=== PATIENT | female | born 1995 ===

== ENCOUNTER 2025-03-05 11:43 | Emergency (ER) | payer OTHER, BC, SELFPAY ==
[2025-03-05] VITALS (26 sets, daily range): BP systolic 113–131; BP diastolic 54–86; PULSE 55–91; RESP 10–21; TEMP 36.6; O2SAT 98–100
--- NOTE | 2025-03-05 11:45 | RT.EKG_ITS ---
APPROVED REPORT Exam: Resting ECG Reason for Exam: dizziness Patient Location: E HR:62 bpm ECG Measurements Heart Rate 62 AXIS IA 141 P 36 QRSd 77 QRS 67 QT 391 T 64 QTc 397 Conclusion Sinus rhythm...normal P axis, V-rate 60- 99 I have reviewed and interpreted ECG and agree with software generated interpretation.
--- NOTE | 2025-03-05 12:15 | DI.CT_ITS ---
Exam(s) CT BRAIN NECK CTA EXAM: CT BRAIN NECK CTA CLINICAL HISTORY: syncope vs thunderclap PETER. TECHNIQUE: Imaging Protocol: Axial CT angiography was performed with multi- slice acquisition and multi-planar and MIP reconstructions. CONTRAST MATERIAL: Intravenous: Omnipaque 350 Contrast volume:70 ml COMPARISON: No exams were available for comparison FINDINGS: CT Head W/O and W contrast: Noncontrast exam is limited by motion. Ventricles and Extra axial spaces: Normal in size and morphology for the patient's age. Hemorrhage: None limited evaluation due to motion. Hemorrhage not excluded. Cerebral parenchyma: No evidence of acute infarct or mass. Midline shift: None. Brainstem/Cerebellum: No acute findings.. Calvarium: Normal. Visualized Paranasal sinuses/Mastoids: Clear. Soft Tissues: Unremarkable. Enhancement: Normal. Venous sinuses are patent. CTA Brain W: Internal Carotid Arteries: Right: No aneurysm, occlusion or significant stenosis. Left: No aneurysm, occlusion or significant stenosis. Middle Cerebral Arteries: Right: No aneurysm, occlusion or significant stenosis. Left: No aneurysm, occlusion or significant stenosis. Anterior Cerebral Arteries: Right: No aneurysm, occlusion or significant stenosis. Left: No aneurysm, occlusion or significant stenosis. Posterior cerebral Arteries: Right: No aneurysm, occlusion or significant stenosis. Left: No aneurysm, occlusion or significant stenosis. Vertebral Arteries: Right: No aneurysm, occlusion or significant stenosis. Left: No aneurysm, occlusion or significant stenosis. Basilar Artery: No aneurysm, occlusion or significant stenosis. CTA Neck W: Common Carotid: Right: No dissection, occlusion or significant stenosis. Left: No dissection, occlusion or significant stenosis. External Carotid: Right: No dissection, occlusion or significant stenosis. Left: No dissection, occlusion or significant stenosis. Internal Carotid: Right: No dissection, occlusion or significant stenosis. Left: No dissection, occlusion or significant stenosis. Vertebral Artery: Right: No dissection, occlusion or significant stenosis. Left: No dissection, occlusion or significant stenosis. Lung Apices: No acute findings. Bones: No acute abnormality. Soft Tissues: Normal. IMPRESSION: 1. CTA brain: Normal CTA examination of the [place]. 2. Head CT: Precontrast exam is limited due to motion. No acute abnormality is visible. 3. CTA neck: No evidence of occlusion, significant stenosis or dissection. RADIATION DOSE DELIVERED: 2,173.66mGy.cm Total DLP DATA REPOSITORY: All CT scans at this facility are submitted to the National Radiology Data Registry (NRDR) Dose Index Registry (DIR) with the [employer] (A[employer]). RADIATION OPTIMIZATION: All CT scans at this facility use at least one of these dose optimization techniques: automated exposure control; mA and/or kV adjustment per patient size (includes targeted exams where dose is matched to clinical indication); or iterative reconstruction.
[2025-03-05 12:40] LABS: Lactate 1.1 mmol/L (<or=2.0)
[2025-03-05 12:41] LABS: Abs Immature Grans 0.03 10^3/uL (0.0-0.06); Absolute Basophil Count 0.04 10^3/uL (0.0-0.2); Absolute Eosinophil Count 0.06 10^3/uL (0.0-0.7); Absolute Lymphocyte Count 1.96 10^3/uL (1.2-3.4); Absolute Monocyte Count 0.44 10^3/uL (0.1-0.8); Absolute Neutrophil Count 3.84 10^3/uL (1.2-6.7); Basophils % 0.6 %; Eosinophils % 0.9 %; HCT 43.8 % (36.0-46.0); Immature Grans % 0.5 %; Lymphocytes % 30.8 %; MCH 31.6 pg (27.0-33.0); MCHC 34.2 % (32.0-36.0); MCV 92 fL (80-95); MPV 9.2 fL (8.0-11.0); Monocytes % 6.9 %; Neutrophils % 60.3 %; Platelet Count 246 10^3/uL (130-400); RBC 4.74 10^6/uL (3.93-5.22); RDW 11.4 % (11.7-14.6); RDW-SD 38.8 fL; WBC 6.37 10^3/uL (4.4-10.8)
[2025-03-05] MEDS: Normal Saline - Diluent 50 ML VIAL IJ (12:55)
--- NOTE | 2025-03-05 12:55 | ED.GENADUL_ITS ---
Discharge Plan Disposition Patient Disposition: Home Condition: Stable Discharge Details Clinical Impression: Vasovagal near syncope Primary Care Provider: Unknown,Unknown ED Provider: Chilo Jackson Home Meds and New Rx's Prescriptions: No Action No Known Home Meds Discharge Instructions Instructions: Vasovagal Response Additional Instructions: You were seen in the emergency department for your confusion, headache and dizziness while at the [facility], the CT of your head shows no bleeding, no tumor, no other abnormalities, your laboratory workup is negative, there is no evidence of any strain on your heart, you likely had some malnutrition and dehydration from not eating and then performing physical assessments today. If this episode does recur I think he should be reevaluated at the emergency department, please return for any chest pain, palpitations, near fainting or dizziness or any alteration from baseline. Discharge Data Discharge Date/Time-TO BE ENTERED AT DEPARTURE: 03/05/25 15:11 HPI General Date/Time Provider Initiated Documentation: 03/05/25 12:08 . HPI Narrative: 29 year-old female presents to ED today by EMS with a chief complaint of dizziness, confusion, headache, near syncope while doing physical assessment day at [facility] [employer] with onset about 40 mins prior to presentation. Quality described as just felt weak and dizzy- altered mentation, no radiation to visual changes, unilateral weakness, complete numbness, chest pain, shortness of breath, vomiting. Severity is described as severe. Palliating factors include tried having gatorade and food with only very slight improvement. Provoking factors include nothing specific. Patient not anticoagulated. Related Data Home Medications ?Medication ?Instructions ?Recorded ?Confirmed Unknown [No Known Home Meds] 03/05/25 0 03/05/25 Allergies Allergy/AdvReac Type Severity Reaction Status Date / Time No Known Allergies Allergy Unverified 03/05/25 13:14 General Stated Complaint: Dizzy/Sync HAMLET: 3 Review of Systems All systems reviewed & are unremarkable except as noted in HPI and below Exam Narrative Exam Narrative: GENERAL APPEARANCE: Well-nourished, non-toxic, awake and alert, atraumatic, no acute distress. SKIN: Warm, pale, dry, intact, without rashes/lesions/ulcerations. HEAD: Normocephalic, atraumatic, normal hair distribution for gender/age. EYES: Normal conjunctiva, no exudates on lids/lashes. ENT: Nares patent, no circumoral cyanosis, no facial swelling NECK: Supple, trachea midline, painless cervical ROM. LUNGS/CHEST: Lungs CTA bilaterally- no rhonchi/rales/wheezes diffusely, non- labored respirations, normal A/P diameter, symmetrical expansion, no chest wall deformity HEART (CV/PV): Regular rate and rhythm without murmur, no peripheral edema, no JVD. ABDOMEN: Soft, non-distended, no guarding. MSK: Normal ROM, no swelling/deformity to bilateral UEs or LEs, moving all extremities without weakness, no cyanosis, spine midline without tenderness, normal curvature. NEURO: Mental Status AAOx4 - alert to person, place, time, events No facial droop, no forehead involvement, no dysmetria with FNF, heel-hartman Motor: No focal weakness - strength 5/5 in bilateral UEs and LEs, proximal and distal, symmetric. Sensory: sensation intact to light touch globally. Gait normal: patient ambulated without ataxia in ED room. PSYCH: euthymic, cooperative, pleasant, appropriate speech Course Vital Signs Vital signs: Vital Signs Temperature 36.6 C 03/05/25 11:50 Pulse 68 03/05/25 11:50 Respiratory Rate 16 03/05/25 11:50 Blood Pressure 131/86 03/05/25 11:50 Pulse Oximetry 98 03/05/25 11:50 Temperature 36.6 C 03/05/25 11:50 Pulse 68 03/05/25 11:50 Respiratory Rate 16 03/05/25 11:50 Blood Pressure 131/86 03/05/25 11:50 Pulse Oximetry 98 03/05/25 11:50 Pain Level 0 03/05/25 11:50 Lab/Test Results Lab/Test Results: Laboratory Tests Range/Units 03/05/25 12:30 WBC (4.4-10.8) 10^3/uL 6.37 RBC (3.93-5.22) 10^6/uL 4.74 Hgb (11.2-15.7) g/dL 15.0 Hct (36.0-46.0) % 43.8 MCV (80-95) fL 92 MCH (27.0-33.0) pg 31.6 MCHC (32.0-36.0) % 34.2 RDW (11.7-14.6) % 11.4 L Plt Count (130-400) 10^3/uL 246 MPV (8.0-11.0) fL 9.2 Immature Gran % % 0.5 Neutrophils % % 60.3 Lymphocytes % % 30.8 Monocytes % % 6.9 Eosinophils % % 0.9 Basophils % % 0.6 Nucleated RBC % (0.0-0.3) % 0.0 Absolute Neutrophils (1.2-6.7) 10^3/uL 3.84 Absolute Lymphocytes (1.2-3.4) 10^3/uL 1.96 Absolute Monocytes (0.1-0.8) 10^3/uL 0.44 Absolute Eosinophils (0.0-0.7) 10^3/uL 0.06 Absolute Basophils (0.0-0.2) 10^3/uL 0.04 VBG Lactate (<or=2.0) mmol/L 1.1 TSH Cancelled Medical Decision Making This dictation utilizes [id number] dictation software and may contain unedited grammatical errors. 29 year-old female presents to ED today by EMS with a chief complaint of dizzine ss, confusion, headache, near syncope while doing physical assessment day at [employer] [employer] with onset about 40 mins prior to presentation. Quality described as just felt weak and dizzy- altered mentation, no radiation to visual changes, unilateral weakness, complete numbness, chest pain, shortness of breath, vomiting. Severity is described as severe. Palliating factors include tried having gatorade and food with only very slight improvement. Provoking factors include nothing specific. Patient did not eat a lot of food this morning. Patients' medical history: negative, otherwise healthy, no episodes like this in the past. Family and social history: Healthy and active, no substance use. Pertinent exam findings / vital signs include alert and oriented but slow to respond, able to follow commands, no weakness to any extremity, benign cardiopulmonary exam, EOMs intact, no cerebellar signs with [id number] or heel hartman. Differential / pathologies of concern include syncope, SAH, vasovagal syncope, dehydration/malnutrition, focal seizure, less likely CVA/TIA. Diagnostic studies of: -CBC, CMP, lactate, magnesium, serial troponins, BNP, TSH, lipase, POC Upreg, UD S, UA, CTA brain and neck, EKG. - CBC shows no anemia, no leukocytosis - Lactate negative - CMP without acute abnormality - Serial troponins negative - BNP negative - Lipase within normal limits - TSH within normal limits - POC urine negative, UA shows no signs of infection or other abnormality - UDS negative - CT of the brain and neck shows no acute abnormality - EKG shows no signs of ischemia, normal intervals, normal axis, no T wave abnormalities Interventions of: -1L IVF NS, 1g PO tylenol, 15mg IVP ketorolac, some improvement in headache. ED Course/Assessment/Plan: 29-year-old female was undergoing physical assessment training at [facility] [employer] [facility], did not eat breakfast or hydrate herself well this morning and had a possible near syncopal event, they states she did not fully lose consciousness but was complaining of confusion and headache with sudden onset, CTA of the brain and neck ruled out any intracranial pathology she was given headache medications with some improvement. She was initially sluggish to respond but did identify she was at [facility], she had no focal weakness on neurologic exam and her laboratory workup was benign, she was provided IV fluids, counseled her on strict return criteria for any further episodes of sudden onset dizziness and headache and recommend she follow-up with her primary care provider. Findings not consistent with arrhythmia, heart block, intracranial hemorrhage, stroke, subarachnoid hemorrhage, ACS, substance use. Disposition of Vasovagal Response. Patient verbalized understanding of the plan and return to ED criteria and engaged in shared decision making. Medical Records Medical records reviewed: Yes I reviewed the patient's medical records. Imaging Data Radiologic Study: Attestation: I personally reviewed and interpreted this imaging study as follows: Imaging: CT Scan Radiologist's impression: EXAM: CT BRAIN NECK CTA CLINICAL HISTORY: syncope vs thunderclap PETER. TECHNIQUE: Imaging Protocol: Axial CT angiography was performed with multi- slice acquisition and multi-planar and MIP reconstructions. CONTRAST MATERIAL: Intravenous: Omnipaque 350 Contrast volume:70 ml COMPARISON: No exams were available for comparison FINDINGS: CT Head W/O and W contrast: Noncontrast exam is limited by motion. Ventricles and Extra axial spaces: Normal in size and morphology for the patient's age. Hemorrhage: None limited evaluation due to motion. Hemorrhage not excluded. Cerebral parenchyma: No evidence of acute infarct or mass. Midline shift: None. Brainstem/Cerebellum: No acute findings.. Calvarium: Normal. Visualized Paranasal sinuses/Mastoids: Clear. Soft Tissues: Unremarkable. Enhancement: Normal. Venous sinuses are patent. CTA Brain W: Internal Carotid Arteries: Right: No aneurysm, occlusion or significant stenosis. Left: No aneurysm, occlusion or significant stenosis. Middle Cerebral Arteries: Right: No aneurysm, occlusion or significant stenosis. Left: No aneurysm, occlusion or significant stenosis. Anterior Cerebral Arteries: Right: No aneurysm, occlusion or significant stenosis. Left: No aneurysm, occlusion or significant stenosis. Posterior cerebral Arteries: Right: No aneurysm, occlusion or significant stenosis. Left: No aneurysm, occlusion or significant stenosis. Vertebral Arteries: Right: No aneurysm, occlusion or significant stenosis. Left: No aneurysm, occlusion or significant stenosis. Basilar Artery: No aneurysm, occlusion or significant stenosis. CTA Neck W: Common Carotid: Right: No dissection, occlusion or significant stenosis. Left: No dissection, occlusion or significant stenosis. External Carotid: Right: No dissection, occlusion or significant stenosis. Left: No dissection, occlusion or significant stenosis. Internal Carotid: Right: No dissection, occlusion or significant stenosis. Left: No dissection, occlusion or significant stenosis. Vertebral Artery: Right: No dissection, occlusion or significant stenosis. Left: No dissection, occlusion or significant stenosis. Lung Apices: No acute findings. Bones: No acute abnormality. Soft Tissues: Normal. IMPRESSION: 1. CTA brain: Normal CTA examination of the [place]. 2. Head CT: Precontrast exam is limited due to motion. No acute abnormality is visible. 3. CTA neck: No evidence of occlusion, significant stenosis or dissection. Lab Data Lab results reviewed: Yes I reviewed the patient's lab results. Labs: Laboratory Tests Range/Units 03/05/25 03/05/25 03/05/25 12:30 12:30 13:21 WBC (4.4-10.8) 10^3/uL 6.37 RBC (3.93-5.22) 10^6/uL 4.74 Hgb (11.2-15.7) g/dL 15.0 Hct (36.0-46.0) % 43.8 MCV (80-95) fL 92 MCH (27.0-33.0) pg 31.6 MCHC (32.0-36.0) % 34.2 RDW (11.7-14.6) % 11.4 L Plt Count (130-400) 10^3/uL 246 MPV (8.0-11.0) fL 9.2 Immature Gran % % 0.5 Neutrophils % % 60.3 Lymphocytes % % 30.8 Monocytes % % 6.9 Eosinophils % % 0.9 Basophils % % 0.6 Nucleated RBC % (0.0-0.3) % 0.0 Absolute Neutrophils (1.2-6.7) 10^3/uL 3.84 Absolute Lymphocytes (1.2-3.4) 10^3/uL 1.96 Absolute Monocytes (0.1-0.8) 10^3/uL 0.44 Absolute Eosinophils (0.0-0.7) 10^3/uL 0.06 Absolute Basophils (0.0-0.2) 10^3/uL 0.04 VBG Lactate (<or=2.0) mmol/L 1.1 Sodium (136-145) mmol/L 142 Potassium (3.5-5.1) mmol/L 3.5 Chloride (98-107) mmol/L 104 Carbon Dioxide (21.0-32.0) mmol/L 30.1 Anion Gap (3-11) mmol/L 7.9 BUN (7-18) mg/dL 5 L Creatinine (0.55-1.02) mg/dL 0.8 Est GFR (CKD-EPI 2020) (mL/min/1.73m2) 102.86 Glucose (74-106) mg/dL 83 Calcium (8.5-10.1) mg/dL 9.3 Magnesium (1.8-2.4) mg/dL 2.3 Total Bilirubin (0.2-1.0) mg/dL 0.4 AST (15-37) U/L 16 ALT (14-59) U/L 27 Alkaline Phosphatase (46-116) U/L 46 Troponin I (<or=51) ng/L 10 10 NT-Pro-B Natriuret Pep (<300) pg/mL 15 Total Protein (6.4-8.2) g/dL 7.7 Albumin (3.4-5.0) g/dL 4.4 Lipase (<78) U/L 29 TSH (0.36-3.74) uIU/mL 0.59 Cancelled Urine Color (Yellow) Urine Clarity (Clear) Urine pH (5-8) Ur Specific [place] (1.005-1.025) Urine Protein (Neg-Trace) mg/dL Urine Ketones (Negative) mg/dL Urine Blood (Negative) Urine Nitrite (Negative) Urine Bilirubin (Negative) Urine Urobilinogen (Up to 0.2) mg/dL Ur Leukocyte Esterase (Negative) Urine Glucose (Negative) mg/dL Urine Opiates Screen (Negative) Urine Methadone Screen (Negative) Ur Barbiturates Screen (Negative) Ur Tricyclics Screen (Negative) Ur Amphetamines Screen (Negative) U Benzodiazepines Scrn (Negative) Urine Cocaine Screen (Negative) Ur THC Screen (Negative) Range/Units 03/05/25 03/05/25 13:37 15:16 WBC (4.4-10.8) 10^3/uL RBC (3.93-5.22) 10^6/uL Hgb (11.2-15.7) g/dL Hct (36.0-46.0) % MCV (80-95) fL MCH (27.0-33.0) pg MCHC (32.0-36.0) % RDW (11.7-14.6) % Plt Count (130-400) 10^3/uL MPV (8.0-11.0) fL Immature Gran % % Neutrophils % % Lymphocytes % % Monocytes % % Eosinophils % % Basophils % % Nucleated RBC % (0.0-0.3) % Absolute Neutrophils (1.2-6.7) 10^3/uL Absolute Lymphocytes (1.2-3.4) 10^3/uL Absolute Monocytes (0.1-0.8) 10^3/uL Absolute Eosinophils (0.0-0.7) 10^3/uL Absolute Basophils (0.0-0.2) 10^3/uL VBG Lactate (<or=2.0) mmol/L Sodium (136-145) mmol/L Potassium (3.5-5.1) mmol/L Chloride (98-107) mmol/L Carbon Dioxide (21.0-32.0) mmol/L Anion Gap (3-11) mmol/L BUN (7-18) mg/dL Creatinine (0.55-1.02) mg/dL Est GFR (CKD-EPI 2020) (mL/min/1.73m2) Glucose (74-106) mg/dL Calcium (8.5-10.1) mg/dL Magnesium (1.8-2.4) mg/dL Total Bilirubin (0.2-1.0) mg/dL AST (15-37) U/L ALT (14-59) U/L Alkaline Phosphatase (46-116) U/L Troponin I (<or=51) ng/L Cancelled NT-Pro-B Natriuret Pep (<300) pg/mL Total Protein (6.4-8.2) g/dL Albumin (3.4-5.0) g/dL Lipase (<78) U/L TSH (0.36-3.74) uIU/mL Urine Color (Yellow) Straw Urine Clarity (Clear) Clear Urine pH (5-8) 7.5 Ur Specific [place] (1.005-1.025) 1.015 Urine Protein (Neg-Trace) mg/dL Negative Urine Ketones (Negative) mg/dL Negative Urine Blood (Negative) Negative Urine Nitrite (Negative) Negative Urine Bilirubin (Negative) Negative Urine Urobilinogen (Up to 0.2) mg/dL 0.2 Ur Leukocyte Esterase (Negative) Negative Urine Glucose (Negative) mg/dL Negative Urine Opiates Screen (Negative) Negative Urine Methadone Screen (Negative) Negative Ur Barbiturates Screen (Negative) Negative Ur Tricyclics Screen (Negative) Negative Ur Amphetamines Screen (Negative) Negative U Benzodiazepines Scrn (Negative) Negative Urine Cocaine Screen (Negative) Negative Ur THC Screen (Negative) Negative PFSH All Active Problems (Updated 03/05/25 @ 15:02 by MARCY Michelle) Vasovagal near syncope (Acute) Social History Smoking/Tobacco Use Status: Never Smoking risk assessment performed?: Yes Alcohol Intake: never Drug use: Never Substance use type: does not use Do you feel safe at home: Yes Do you feel safe in your relationship?: Yes
[2025-03-05] MEDS: Omnipaque 350 MG/ML 100 ML BTL 70 ML IJ (12:56)
[2025-03-05] MEDS: Normal Saline 1,000 ML 1000 ML IV (13:13)
[2025-03-05 13:35] LABS: ALT 27 U/L (14-59); AST 16 U/L (15-37); Albumin 4.4 g/dL (3.4-5.0); Alkaline Phosphatase 46 U/L (46-116); Anion Gap 7.9 mmol/L (3-11); BUN 5 mg/dL (7-18); Bilirubin, Total 0.4 mg/dL (0.2-1.0); CO2 30.1 mmol/L (21.0-32.0); CREATININE 0.8 mg/dL (0.55-1.02); Calcium 9.3 mg/dL (8.5-10.1); Chloride 104 mmol/L (98-107); Estimated GFR 102.86 (mL/min/1.73m2); Glucose 83 mg/dL (74-106); Lipase 29 U/L (<78); Magnesium 2.3 mg/dL (1.8-2.4); NT-proBNP 15 pg/mL (<300); Potassium 3.5 mmol/L (3.5-5.1); Sodium 142 mmol/L (136-145); TSH (W/Ref FT4) 0.59 uIU/mL (0.36-3.74); Total Protein 7.7 g/dL (6.4-8.2); Troponin I 10 ng/L (<or=51)
[2025-03-05 13:56] LABS: Troponin I 10 ng/L (<or=51)
[2025-03-05 13:59] LABS: Bilirubin Negative (Negative); Blood Negative (Negative); Clarity Clear (Clear); Glucose Negative (Negative); Ketones Negative (Negative); Leukocyte Esterase Negative (Negative); Nitrite Negative (Negative); Specific Gravity 1.015 (1.005-1.025); Urobilinogen 0.2 mg/dL (Up to 0.2); pH 7.5 (5-8)
[2025-03-05 14:21] LABS: *AMPHETAMINES SCREEN URINE Negative (Negative); *BARBITURATES SCREEN URINE Negative (Negative); *BENZODIAZEPINES SCREEN URINE Negative (Negative); Cannabinoids THC Negative (Negative); Cocaine Screen,Urine Negative (Negative); METHADONE URINE SCREEN Negative (Negative); OPIATES URINE SCREEN Negative (Negative)
[2025-03-05 14:23] LABS: Tricyclic Antidepressants Negative (Negative)
== END 2025-03-05 15:11 | disposition home or self-care (01) ==
PROVIDERS: Emergency Provider Physician Assistant
DX: R55 Syncope and collapse (principal); R42 Dizziness and giddiness; R51.9 Headache, unspecified
CPT/HCPCS: 99284; 99285; 36415; 70496; 70498; 80053; 80307; 83690; 93005; 96360; 81003; 83605; 83735; 83880; 84443; 84484; 85025; 93010; J3490